=== PATIENT | male | born 1955 | race Caucasian/White ===

== ENCOUNTER → 2017-01-06 | Day surgery (SDC) | payer BC, MEDICARE ==
[~2017-01-06] MED LIST: ACID CONTROL150 M1 PO; ALLEGRA60 MG PO; AMBIEN PO; AMBIEN10 MG PO; ANTIBIOTIC; ASPIRIN81 M1 PO; AXID150 MG PO; BENTYL20 MG PO; CELEXA PO; CELEXA20 MG PO; CLARITIN10 M2 PO; CLARITIN10 M3 PO; COMBIVENT INH; COMBIVENT INH14.7 GM INH; COMBIVENT RESPIM4 GM IH; CYANOCOBALAM1000 MCG PO; DESYREL50 MG PO; DIABETA5 M1 PO; GLUCOPHAGE500 M1 PO; GLYBURIDE PO; GLYNASE PO; HYDRALAZINE HCL25 MG PO; HYDROCODONE/APA1 T15 PO; HYDROXYZINE PAM25 MG PO; JANUVIA PO; LASIX20 MG PO; LEVOCETIRIZINE D5 MG PO; LIPO TOP; LISINOPRIL PO; LISINOPRIL20 MG PO; LORTAB; LORTAB 10-3251 EACH PO; LORTAB 10/500 T1 TAB PO; LUNESTA PO; METHADONE HCL10 MG PO; METHADONE PO; MICRONASE5 M2 PO; MONTELUKAST SOD10 MG PO; MORPHINE IR PO; MORPHINE SULFAT60 M1 PO; MORPHINE SULFAT60 M3 PO; MS CONTIN PO; MS CONTIN60 MG PO; MSIR15 MG PO; NEURONTIN600 MG PO; OXYGEN; PAIN CREAM TOP; PENTOX TOP; PREDNISONE10 MG PO; PRILOSEC20 M1 PO; RANITIDINE HCL150 M1 PO; ROBAXIN PO; SYMBICORT INH; TAGAMET; TAGAMET PO; TEMAZEPAM PO; TRAZODONE PO; ULTRAM; VIT B-12 PO; VITAMIN B12-FO1 EACH PO; VOLTAREN50 MG PO; ZANTAC150 MG PO; ZITHROMAX PO; ZOLPIDEM TARTRA10 MG PO
--- NOTE | ~2017-01-06 | OR ---
Unit #: [id number] #: [id number] Patient: EBER GUTIERREZ [id number] [address] [place], [place] [address] [id number] O MR#: [id number] NAME: EBER GUTIERREZ. ROOM: Date of Procedure: 01/06/2017 Admission Date: 01/06/2017 Surgeon: Sanjiv Erickson Jr., M.D. : 1955 Attending Physician: Sanjiv Erickson Jr., M.D. Primary Care Physician: Tuyet Gonzalez M.D. OPERATIVE REPORT INDICATIONS FOR PROCEDURE The patient is a 61-year-old white male with a known past history of colon polyps. He has recently been having some vague abdominal pains and some hemorrhoidal problems. He is brought in this time at his request for colonoscopy. His last colonoscopy was over 5 years ago. PREOPERATIVE DIAGNOSES Abdominal pain, hemorrhoidal irritation with past history of colon polyps rule out recurrence. POSTOPERATIVE DIAGNOSES The patient was noted to have some irritation of his internal hemorrhoids with significant diminished sphincteric tone probably from his back surgery and extensive diverticulosis of left colon and two small polyps, one in the sigmoid colon at 20 cm which was only 1 mm in diameter, and one that was approximately 2 to 3 mm in diameter in the ascending colon. ANESTHESIA MAC anesthesia. PROCEDURE PERFORMED Flexible colonoscopy to the distal ileum with biopsies of two small polyps described above. DESCRIPTION OF PROCEDURE The patient was positioned in Dickerson position with left side down. After being given MAC anesthesia, digital rectal examination was performed, which revealed no palpable mass or tenderness. No blood or stool in the rectal ampulla. Prostate was normal by palpation. The sphincteric tone was significantly diminished probably from his previous back surgeries. The Olympus colonoscope was advanced through the anal canal up the rectum and retroflexed down to the area of the anorectal region. There were some internal hemorrhoids. No evidence of any significant bleeding and no evidence of any fissures. The scope was then straightened and advanced up the rectosigmoid, in the sigmoid and descending colon areas, and at 20 cm there was a small 1 mm or so polyp, which was biopsied and removed with one bite with the cold biopsy forceps without bleeding. The scope was then advanced up in the sigmoid and descending colon areas where multiple diverticula without evidence of diverticulitis. The scope was then advanced around the splenic flexure and the transverse colon, around hepatic flexure and ascending colon, down in the area of the cecum. The light from the tip of the scope could be seen transilluminating through Unit #: [id number] #: [id number] Patient: EBER GUTIERREZ right lower quadrant abdominal wall area. The scope was then advanced up the distal ileum approximately 5 to 10 inches. There was no evidence of any ileitis or inflammatory bowel disease. The scope was slowly removed. In the area of the ascending colon, there was a small flat polyp approximately 2 to 3 mm in diameter. It was biopsied several times with cold biopsy forceps without bleeding. The scope was then removed. There were no other polyps, no tumors, cancer, or AVMs. No evidence any colitis or acute diverticulitis. The caliber of the colon appeared normal throughout. The scope was removed. The patient tolerated the procedure well and discharged in satisfactory condition. Dictated by... Sanjiv Erickson Jr., M.D. JMB/evin TD: 01/06/2017 14:17 JOB #: [id number] CC: Jorge Gonzalez Jr, M.D. OPERATIVE REPORT Page 1 of 1 X Sanjiv Erickson MD X PROCEDURE OPERATIVE NOTE
== END | disposition home or self-care (01) ==
LOC: COPS 09:24
DX: D12.2 Benign neoplasm of ascending colon (principal); D12.5 Benign neoplasm of sigmoid colon; K64.8 Other hemorrhoids; K57.30 Diverticulosis of large intestine without perforation or abscess without bleeding; K21.9 Gastro-esophageal reflux disease without esophagitis; E11.9 Type 2 diabetes mellitus without complications; M19.90 Unspecified osteoarthritis, unspecified site; J44.9 Chronic obstructive pulmonary disease, unspecified; I10 Essential (primary) hypertension; Z88.8 Allergy status to other drugs, medicaments and biological substances; Z86.010 Personal history of colon polyps; Z91.040 Latex allergy status; Z96.652 Presence of left artificial knee joint; Z90.49 Acquired absence of other specified parts of digestive tract; Z98.890 Other specified postprocedural states; Z79.84 Long term (current) use of oral hypoglycemic drugs; Z79.899 Other long term (current) drug therapy; Z79.891 Long term (current) use of opiate analgesic; Z99.81 Dependence on supplemental oxygen; Z79.51 Long term (current) use of inhaled steroids
CPT/HCPCS: 82947; 88305